=== PATIENT | female | born 1995 | race Caucasian/White ===

== ENCOUNTER 2021-11-20 07:29 | Emergency (ER) | payer OTHER ==
[~2021-11-20] VITALS: Ht 157.5 cm; Wt 51.9 kg
[2021-11-20] MEDS ORDERED: amox tr/potassium clavulanate 875/125mg TAB PO ONE (08:25)
[2021-11-20] MEDS ORDERED: ibuprofen tablet 400 MG TABLET PO ONE (08:25)
[2021-11-20] MEDS ORDERED: morphine IR (immed. release) 30mg tablet PO STA (08:56)
[2021-11-20] MEDS ORDERED: AMOX-117 PO (09:15)
[2021-11-20 10:00] VITALS: BP 121/62
== END 2021-11-20 10:04 | disposition home or self-care (01) ==
LOC: ER 07:32
DX: K04.7 Periapical abscess without sinus (principal); Z79.899 Other long term (current) drug therapy
CPT/HCPCS: 99284